=== PATIENT | female | born 1995 | race Caucasian/White ===

== ENCOUNTER 2017-05-28 22:54 | Emergency (ER) | payer OTHER, BC ==
[~2017-05-28] VITALS: Ht 172.7 cm; Wt 99.7 kg
[~2017-05-28 22:54] MED LIST: MOTRIN800 MG PO
[2017-05-29 02:55] VITALS: BP 133/85
== END 2017-05-29 02:55 | disposition home or self-care (01) ==
LOC: EME 22:54
DX: T75.4XXA Electrocution, initial encounter (principal); R20.2 Paresthesia of skin; R20.0 Anesthesia of skin; W86.8XXA Exposure to other electric current, initial encounter; Y99.0 Civilian activity done for income or pay
CPT/HCPCS: 93005; 99281; 99283